=== PATIENT | female | born 1995 | race Caucasian/White ===

== ENCOUNTER 2020-11-17 20:45 | Emergency (ER) | payer OTHER, BC, SELFPAY ==
[2020-11-17 21:06] VITALS: BP 124/60; PULSE 84; RESP 14; TEMP 36.8; O2SAT 98; BMI 24.2
--- NOTE | 2020-11-17 21:10 | DI.RAD.S_ITS ---
PROCEDURE: XR TIBIA FIBULA LT 2V INDICATIONS: ankle in jury TECHNIQUE: 2 views of the tibia and fibula were acquired. COMPARISON: None. FINDINGS: Bones: No fractures or dislocations. No suspicious bony lesions. Soft tissues: Soft tissue swelling overlying the lateral malleolus. IMPRESSION: No fracture Dictated by: Jeremias De La Rosa M.D. on 11/17/2020 at 22:02 Approved by: Jeremias De La Rosa M.D. on 11/17/2020 at 22:03
--- NOTE | 2020-11-17 21:10 | DI.RAD.S_ITS ---
PROCEDURE: XR ANKLE LT MIN 3V INDICATIONS: ankle in jury TECHNIQUE: 3 views of the ankle were acquired. COMPARISON: None. FINDINGS: Bones: No fractures or dislocations. Ankle mortise is normally aligned. No suspicious bony lesions. Soft tissues: Anterolateral soft tissue swelling. IMPRESSION: Anterolateral soft tissue swelling. No fracture identified. If the patient's pain or other symptoms persist, consider further evaluation with MRI Dictated by: Jeremias De La Rosa M.D. on 11/17/2020 at 22:01 Approved by: Jeremias De La Rosa M.D. on 11/17/2020 at 22:02
[2020-11-17] MEDS: KETOROLAC 30 MG/ML VIAL IM (23:04)
--- NOTE | 2020-11-17 23:56 | ED.LOWEXIN ---
HPI - Extremity Injury (Lower) General Chief Complaint: Extremity Injury, Lower Stated Complaint: LEFT ANKLE INJURY Time Seen by Provider: 11/17/20 23:55 Source: patient Mode of arrival: Wheelchair Limitations: no limitations History of Present Illness HPI Narrative: 25-year-old female who presents with left ankle pain. She was at work on a well watching about going down stairs when she tripped. Having severe pain unable to ambulate. No numbness or tingling. Feeling better after Toradol. Related Data Allergies Allergy/AdvReac Type Severity Reaction Status Date / Time No Known Drug Allergies Allergy Verified 11/17/20 21:06 Review of Systems Review of Systems Narrative: GENERAL: Denies chills,fever HEENT: Denies throat pain RESPIRATORY: Denies dyspnea, cough, wheezing CARDIOVASCULAR: Denies chest pain, palpitations GASTROINTESTINAL: Denies nausea, vomiting MUSCULOSKELETAL: See HPI SKIN: No rash, no laceration, no pruritus NEUROLOGIC: Denies weakness, dizziness, headache, numbness 8 point review of systems is negative except for those stated above and HPI Patient History Social History Smoking Status: Unknown if ever smoked Smoking Status: Unknown if ever smoked alcohol intake frequency: holidays/special occasions only Substance Use Type: does not use Exam Initial Vital Signs Initial Vital Signs: Vital Signs Temperature 98.3 F 11/17/20 21:06 Pulse Rate 84 11/17/20 21:06 Respiratory Rate 14 11/17/20 21:06 Blood Pressure 124/60 11/17/20 21:06 Pulse Oximetry 98 11/17/20 21:06 GENERAL: Well-appearing, well-nourished and in no acute distress. CARDIOVASCULAR: peripheral pulses in tact, cap refill <2 sec RESPIRATORY: No respiratory distress, speaks in full sentences without difficulty EXTREMITIES: Normal range of motion, no clubbing or edema. Neurovascularly intact Left lower extremity swelling distal pedal pulse intact Achilles tendon intact midfoot nontender NEUROLOGICAL: Cranial nerves II through XII grossly intact. Normal gait and speech. SKIN: Warm, dry, no petechiae, no rashes or lesions. Course Orders Ordered: ED Orders 11/17/20 21:10 XR ankle LT min 3V Stat XR tibia fibula LT 2V Stat Discontinued Medications Ketorolac Tromethamine (Ketorolac 30 Mg/Ml Vial) 30 mg IM NOW ONE Stop: 08/15/21 22:59 Last Admin: 11/17/20 23:04 Dose: 30 mg Documented by: PATEL Vital Signs Vital signs: Vital Signs - 8 hr 11/17/20 21:06 Temperature 98.3 F Pulse Rate 84 Respiratory Rate 14 Blood Pressure 124/60 Pulse Oximetry 98 MDM - Extremity Injury (Lower) Imaging Data Extremity x-ray #1: Radiologist's Impression: PROCEDURE: XR ANKLE LT MIN 3V INDICATIONS: ankle in jury TECHNIQUE: 3 views of the ankle were acquired. COMPARISON: None. FINDINGS: Bones: No fractures or dislocations. Ankle mortise is normally aligned. No suspicious bony lesions. Soft tissues: Anterolateral soft tissue swelling. IMPRESSION: Anterolateral soft tissue swelling. No fracture identified. If the patient's pain or other symptoms persist, consider further evaluation with MRI Dictated by: Jeremias De La Rosa M.D. on 11/17/2020 at 22:01 Extremity x-ray #2: Radiologist's Impression: PROCEDURE: XR TIBIA FIBULA LT 2V INDICATIONS: ankle in jury TECHNIQUE: 2 views of the tibia and fibula were acquired. COMPARISON: None. FINDINGS: Bones: No fractures or dislocations. No suspicious bony lesions. Soft tissues: Soft tissue swelling overlying the lateral malleolus. IMPRESSION: No fracture Dictated by: Jeremias De La Rosa M.D. on 11/17/2020 at 22:02 Discharge Plan Departure Patient Disposition: Home Clinical Impression: Ankle sprain and strain Instructions: DI for Ankle Sprain Activity Restrictions/Additional Instructions: *You have been diagnosed with left ankle sprain *What to do: Use crutches as needed. This can take 6-8 weeks to fully heal however you should start feeling better over the next 1 week. Elevate and ice. Tab wrap and compression will also. *Continue to take medications as directed Motrin 800 mg every 8 hours if needed for pain *Follow up with your primary care provider in 2-3 days *Return to ER if you should have increasing pain numbness tingling weakness or any new, worsening or concerning symptoms Stand Alone Forms: Work Release Note
== END 2020-11-18 00:40 | disposition home or self-care (01) ==
PROVIDERS: Emergency Provider Emergency Medicine
DX: S93.402A Sprain of unspecified ligament of left ankle, initial encounter (principal); W10.9XXA Fall (on) (from) unspecified stairs and steps, initial encounter; Y99.0 Civilian activity done for income or pay
CPT/HCPCS: 73590; 73610; 96372; 99283; J1885